=== PATIENT | male | born 1990 | race Caucasian/White ===

== ENCOUNTER 2021-02-27 02:43 | Emergency (ER) | payer SELFPAY ==
--- NOTE | 2021-02-27 03:35 | ER ---
Nurse's Notes [facility] Name: Hector Ramos Age: 30 yrs Sex: Male : 1990 Arrival Date: 02/27/2021 Time: 02:45 Bed 12 [facility] MD: Diagnosis: Scabies Presentation: 02/27 02:59 Chief complaint: Patient states: he has bugs all over him x 2 days. Coronavirus screen: bb At this time, the client does not indicate any symptoms associated with coronavirus-19. Ebola Screen: No symptoms or risks identified at this time. Initial Sepsis Screen: Does the patient meet any 2 criteria? No. Patient's initial sepsis screen is negative. Does the patient have a suspected source of infection? No. Patient's initial sepsis screen is negative. Risk Assessment: Do you want to hurt yourself or someone else? Patient reports no desire to harm self or others. Onset of symptoms was February 25, 2020. 02:59 Method Of Arrival: Ambulatory bb 02:59 Acuity: FRANKI 5 bb Triage Assessment: 03:02 Bite description: bite sustained to legs by "insect", animal information: bb vaccination(s) is not applicable. General: Appears uncomfortable, Behavior is agitated, anxious. Pain: Denies pain. Neuro: Level of Consciousness is awake, alert, obeys commands, Oriented to person, place, situation. Cardiovascular: Capillary refill < 3 seconds Patient's skin is warm and dry. Respiratory: Respiratory effort is even, unlabored. GI: No signs and/or symptoms were reported involving the gastrointestinal system. Derm: Skin is pink, warm \\T\\ dry. Reports insect bites to legs. Musculoskeletal: Circulation, motion, and sensation intact. Historical: - Allergies: 03:02 No Known Allergies; bb - Home Meds: 03:02 None [Active]; bb - PMHx: 03:02 None; bb - PSHx: 03:02 back surgery x 2; bb - Immunization history:: Pfizer x 2. - Social history:: Smoking status: Patient reports the use of cigarette tobacco products, cigars, Patient uses street drugs, opioids , Patient/guardian denies using alcohol. Screenin:43 Abuse screen: Denies threats or abuse. Nutritional screening: No deficits noted. bb Tuberculosis screening: No symptoms or risk factors identified. Fall Risk None identified. Assessment: 03:43 Reassessment: Patient is alert, oriented x 3, equal unlabored respirations, skin bb warm/dry/pink. pt verbalized understanding of and agrees to plan of care discharge instructions given pt ambulated with steady gait to exit. Vital Signs: 02:59 BP 133 / 86; Pulse 94; Resp 16 S; Temp 97.5(TE); Pulse Ox 100% on R/A; Weight 79.38 kg bb (R); Height 6 ft. 1 in. (185.42 cm) (R); 02:59 Body Mass Index 23.09 (79.38 kg, 185.42 cm) bb ED Course: 02:45 Patient arrived in ED. bp1 03:02 Triage completed. bb 03:02 Arm band placed on Patient placed in an exam room. bb 03:05 Genesis Nava RN is Primary Nurse. bb 03:12 Dax Yang MD is Attending Physician. sp3 03:43 Patient has correct armband on for positive identification. bb 03:43 No provider procedures requiring assistance completed. Patient did not have IV access bb during this emergency room visit. Administered Medications: No medications were administered Outcome: 03:34 Discharge ordered by . sp3 03:43 Discharged to home ambulatory. bb 03:43 Condition: stable 03:43 Discharge instructions given to patient, Instructed on discharge instructions, follow up and referral plans. medication usage, Demonstrated understanding of instructions, follow-up care, medications, Prescriptions given X 1. 03:44 Patient left the ED. bb Signatures: Genesis Nava, BRAD RN bb Kelsi Pennington bp1 Dax Yang MD MD sp3
--- NOTE | 2021-02-27 03:35 | EDPHYS ---
Physician Documentation [facility] Name: Hector Ramos Age: 30 yrs Sex: Male : 1990 Arrival Date: 02/27/2021 Time: 02:45 Bed 12 Private MD: ED Physician Dax Yang HPI: 02/27 03:22 This 30 yrs old Male presents to ER via Ambulatory with complaints of Insect Bite. sp3 03:22 30 year old male no past medical history presents with "itching all over". He states sp3 that he may have bedbugs in the hotel he is staying at. He mainly points to the intertriginous areas of his hands and feet along with several areas proximal to that. The areas are warm and have mild bleeding secondary to the tremendous amount of itching he has done. Patient denies fever, trauma, known sick contacts, chest pain, shortness of breath, abdominal pain, nausea, vomiting, diarrhea, or episodes of the same thing.. Historical: - Allergies: 03:02 No Known Allergies; bb - Home Meds: 03:02 None [Active]; bb - PMHx: 03:02 None; bb - PSHx: 03:02 back surgery x 2; bb - Immunization history:: Pfizer x 2. - Social history:: Smoking status: Patient reports the use of cigarette tobacco products, cigars, Patient uses street drugs, opioids , Patient/guardian denies using alcohol. ROS: 03:26 Constitutional: Negative for fever, chills, and weight loss, Eyes: Negative for injury, sp3 pain, redness, and discharge, ENT: Negative for injury, pain, and discharge, Neck: Negative for injury, pain, and swelling, Cardiovascular: Negative for chest pain, palpitations, and edema, Respiratory: Negative for shortness of breath, cough, wheezing, and pleuritic chest pain, Abdomen/GI: Negative for abdominal pain, nausea, vomiting, diarrhea, and constipation, Back: Negative for injury and pain, MS/Extremity: Negative for injury and deformity, Neuro: Negative for headache, weakness, numbness, tingling, and seizure, Psych: Negative for depression, anxiety, suicide ideation, homicidal ideation, and hallucinations, Allergy/Immunology: Negative for hives, rash, and allergies, Endocrine: Negative for neck swelling, polydipsia, polyuria, polyphagia, and marked weight changes, Hematologic/Lymphatic: Negative for swollen nodes, abnormal bleeding, and unusual bruising. 03:26 All other systems are negative. Exam: 03:27 Constitutional: This is a well developed, well nourished patient who is awake, alert, sp3 and in no acute distress. Head/Face: Normocephalic, atraumatic. Eyes: Pupils equal round and reactive to light, extra-ocular motions intact. Lids and lashes normal. Conjunctiva and sclera are non-icteric and not injected. Cornea within normal limits. Periorbital areas with no swelling, redness, or edema. Neck: Trachea midline, no thyromegaly or masses palpated, and no cervical lymphadenopathy. Supple, full range of motion without nuchal rigidity, or vertebral point tenderness. No Meningismus. Chest/axilla: Normal chest wall appearance and motion. Nontender with no deformity. No lesions are appreciated. Cardiovascular: Regular rate and rhythm with a normal S1 and S2. No gallops, murmurs, or rubs. Normal PMI, no JVD. No pulse deficits. Respiratory: Lungs have equal breath sounds bilaterally, clear to auscultation and percussion. No rales, rhonchi or wheezes noted. No increased work of breathing, no retractions or nasal flaring. Abdomen/GI: Soft, non-tender, with normal bowel sounds. No distension or tympany. No guarding or rebound. No evidence of tenderness throughout. MS/ Extremity: Pulses equal, no cyanosis. Neurovascular intact. Full, normal range of motion. Neuro: Awake and alert, GCS 15, oriented to person, place, time, and situation. Cranial nerves II-XII grossly intact. Motor strength 5/5 in all extremities. Sensory grossly intact. Cerebellar exam normal. Normal gait. Psych: Awake, alert, with orientation to person, place and time. Behavior, mood, and affect are within normal limits. 03:27 Skin: Patient has thickened intertriginous areas with areas of excoriation secondary to pruritus and itching. Approximately patient has 7-10 lesions on his forearms and upper legs and thighs that are consistent with insect bites. These are different than the intertriginous areas. . Vital Signs: 02:59 BP 133 / 86; Pulse 94; Resp 16 S; Temp 97.5(TE); Pulse Ox 100% on R/A; Weight 79.38 kg bb (R); Height 6 ft. 1 in. (185.42 cm) (R); 02:59 Body Mass Index 23.09 (79.38 kg, 185.42 cm) bb MDM: 03:28 Data reviewed: vital signs, nurses notes. ED course: Differential includes scabies and sp3 bedbugs. I do suspect possible methamphetamine use as well. Will discharge patient with scabies treatment and instructions to get a new mattress. Follow-up with his routine medical care as needed. . 03:34 Patient medically screened. sp3 Administered Medications: No medications were administered Disposition Summary: 02/27/21 03:34 Discharge Ordered Location: Home sp3 Condition: Stable sp3 Diagnosis - Scabies sp3 Followup: sp3 - With: Private Physician - When: Upon discharge from the Emergency Department - Reason: Continuance of care Discharge Instructions: - Discharge Summary Sheet sp3 - Scabies, Adult sp3 Forms: - Medication Reconciliation Form sp3 - Thank You Letter sp3 - Antibiotic Education sp3 - Prescription Opioid Use sp3 Prescriptions: - permethrin 5 % Topical cream - apply 1 application by TOPICAL route one time leave on for 8-14 hr, then remove sp3 by thorough washing; 2 applicatorful; Refills: 0, Product Selection Permitted Signatures: Genesis Nava RN RN Dax Melendez MD MD sp3 Corrections: (The following items were deleted from the chart) 03:28 03:27 Skin: Patient has thickened intertriginous areas with areas of excoriation sp3 secondary to pruritus and itching. Approximately patient has 7-10 lesions on his forearms and upper legs and thighs that are consistent with insect bites. These are different than the intertriginous areas. Differential includes scabies and bedbugs. I do suspect possible methamphetamine use as well. Will discharge patient with scabies treatment and instructions to get a new mattress. Follow-up with his routine medical care as needed.. sp3
[2021-02-27 03:50] VITALS: BP 133/86; TEMP 97.5; O2SAT 100
== END 2021-02-27 03:44 | disposition home or self-care (01) ==
LOC: ER 02:43
DX: B86 Scabies (principal); Z72.0 Tobacco use
CPT/HCPCS: 99282

== ENCOUNTER 2021-03-02 18:40 | Emergency (ER) | payer SELFPAY ==
[2021-03-03 01:12] LABS: Urine Blood Negative (Negative); Urine Glucose Negative (Negative); Urine Protein 2+ (Negative); Urine pH 8.5 (5.0-7.0)
[2021-03-03 01:24] LABS: Urine Amorphous Sediment 3+ /HPF (NONE SEEN); Urine Bacteria >50 /HPF (NONE SEEN); Urine Mucus 3+ /HPF (NONE SEEN); Urine RBC <5 /HPF (NONE SEEN)
[2021-03-03 01:25] LABS: Calcium Oxalate Crystals- Ur FEW (NONE SEEN); Urine Sperm PRESENT (NONE SEEN)
[2021-03-03 02:01] LABS: Barbiturates NEGATIVE (NEGATIVE); Benzodiazepines NEGATIVE (NEGATIVE); Cocaine POSITIVE (NEGATIVE); METHAMPHETAM POSITIVE (NEGATIVE); Methadone NEGATIVE (NEGATIVE); Opiates POSITIVE (NEGATIVE); Phencyclidine NEGATIVE (NEGATIVE); THC Cannibis NEGATIVE (NEGATIVE)
--- NOTE | 2021-03-03 02:28 | ER ---
Nurse's Notes [facility] Name: Hector Ramos Age: 30 yrs Sex: Male : 1990 Arrival Date: 03/02/2021 Time: 22:52 Bed Treatment Private MD: Diagnosis: UTI/ Urinary tract infection, site not specified;Adverse effect of amphetamines;Adverse effect of cocaine, initial encounter Presentation: 03/02 23:55 Chief complaint: Patient states: "I was dx w/ scabies the other day and now I'm seeing mk bugs in my pee and poop", was given a 'cream that starts with p', hx '2 back surgeries'. Coronavirus screen: Vaccine status: Patient reports being unvaccinated. Ebola Screen: Patient negative for fever greater than or equal to 101.5 degrees Fahrenheit, and additional compatible Ebola Virus Disease symptoms. Initial Sepsis Screen: Does the patient meet any 2 criteria? No. Patient's initial sepsis screen is negative. Does the patient have a suspected source of infection? No. Patient's initial sepsis screen is negative. Risk Assessment: Do you want to hurt yourself or someone else? Patient reports no desire to harm self or others. Onset of symptoms was March 01, 2021. 23:55 Method Of Arrival: Ambulatory 23:55 Acuity: FRANKI 4 Triage Assessment: 23:57 General: Appears in no apparent distress. Behavior is calm. Pain: Denies pain. Historical: - Allergies: 03/03 02:48 No Known Allergies; lp1 Screenin/15 23:57 Abuse screen: Denies threats or abuse. Nutritional screening: No deficits noted. Tuberculosis screening: No symptoms or risk factors identified. Fall Risk None identified. Assessment: 23:44 General: Appears unkempt, Behavior is cooperative. Pain: Denies pain. Neuro: Level of Consciousness is awake, alert, obeys commands, Oriented to person, place, time, situation, Tanning Wheel Operator are equal bilaterally Cardiovascular: Heart tones S1 S2 present Capillary refill < 3 seconds in bilateral fingers toes Patient's skin is warm and dry. Pulses are 2+ in right radial artery, right dorsalis pedis artery, left radial artery and left dorsalis pedis artery Rhythm is sinus rhythm. Respiratory: Airway is patent Trachea midline Respiratory effort is even, unlabored. GI: Abdomen is flat, non-distended. :. Derm: Skin has lesions on scattered lesions/scarring to hands Skin is dry, Skin is pink, warm \\T\\ dry. Musculoskeletal: No deficits noted. 03/03 02:06 General: Appears in no apparent distress. Behavior is cooperative. Neuro: Level of lp1 Consciousness is awake, alert, obeys commands. Respiratory: Respiratory effort is even, unlabored. Derm: Skin is intact, Skin is dry, Skin is normal. Musculoskeletal: No deficits noted. Vital Signs: 03/02 23:55 BP 132 / 92; Pulse 90; Resp 18; Temp 98.3; Pulse Ox 99% ; 23:55 Weight 71 kg; Height 6 ft. 0 in. (182.88 cm); 03/03 01:40 BP 118 / 74; Pulse 79; Resp 18; Pulse Ox 99% on R/A; mk 02:38 BP 121 / 74; Pulse 78; Resp 18; Pulse Ox 98% on R/A; mk 02:47 BP 134 / 81; Pulse 100; Resp 16; Pulse Ox 99% on R/A; lp1 03/02 23:55 Body Mass Index 21.23 (71.00 kg, 182.88 cm) [place] Coma Score: 01:40 Eye Response: spontaneous(4). Verbal Response: oriented(5). Motor Response: obeys commands(6). Total: 15. 02:38 Eye Response: spontaneous(4). Verbal Response: oriented(5). Motor Response: obeys commands(6). Total: 15. ED Course: 03/02 22:52 Patient arrived in ED. wm 23:00 Sangeeta Allen, RN is Primary Nurse. mk 23:57 Triage completed. mk 23:57 Arm band placed on. mk 23:57 Patient has correct armband on for positive identification. Allergy band placed. Bed in low position. Call light in reach. Side rails up X 1. 03/03 00:20 Tesfaye Ribeiro PA is PHCP. cp 00:21 Gabriel Cr MD is Attending Physician. cp 02:48 No provider procedures requiring assistance completed. Patient did not have IV access lp1 during this emergency room visit. Administered Medications: 02:09 CANCELLED (Physician Discretion): Rocephin - (cefTRIAXone) 1 grams IVPB once over 30 cp mins; (mix in 50 mL NS) 02:29 CANCELLED (Physician Discretion; Route changedd): Rocephin - (cefTRIAXone) 1 grams IVPB lp1 once over 30 mins; (mix in 50 mL NS) 02:40 Drug: Rocephin (cefTRIAXone) 1 grams Route: IM; Site: left gluteus; lp1 02:47 Follow up: Response: Medication administered at discharge. lp1 Outcome: 02:27 Discharge ordered by MD. cp 02:48 Discharged to home ambulatory. lp1 02:48 Condition: good 02:48 Discharge instructions given to patient, Instructed on discharge instructions, follow up and referral plans. medication usage, Demonstrated understanding of instructions, follow-up care, medications, Prescriptions given X 1. 02:48 Patient left the ED. lp1 Signatures: Janae Jameson, RN RN lp1 Tesfaye Ribeiro PA PA cp Marsh, Wendy wm Kotarski, Madeline, RN RN mk
--- NOTE | 2021-03-03 02:28 | EDPHYS ---
Physician Documentation [facility] Name: Hector Ramos Age: 30 yrs Sex: Male : 1990 Arrival Date: 03/02/2021 Time: 22:52 Bed Treatment Private MD: ED Physician Gabriel Cr HPI: 03/03 00:33 This 30 yrs old Male presents to ER via Ambulatory with complaints of Bugs in Urine and cp Stool. 00:33 The patient presents with urinary symptoms, "bugs in urine". Onset: The cp symptoms/episode began/occurred at an unknown time. Associated signs and symptoms: Pertinent positives: patient reports noticing "bugs" in stool, Pertinent negatives: abdominal pain, fever, vomiting. 00:33 Patient recently seen in this emergency department on 02/27/[address] Yang with cp complaints for rash and concern for bedbugs. Patient was treated with permethrin cream and reports she has been using it daily since that visit. Patient reports she just washed his clothes and has changed rooms at the hotel he is staying. Patient comes in today complaining of noticing bugs in his urine and stool. Patient denies fever, denies chest pain and abdominal pain. Patient denies penile discharge. Historical: - Allergies: 02:48 No Known Allergies; lp1 ROS: 00:35 Constitutional: Negative for body aches, chills, fever. cp 00:35 Cardiovascular: Negative for chest pain, palpitations. cp 00:35 Abdomen/GI: Negative for abdominal pain, nausea, vomiting, and diarrhea. 00:35 : Negative for penile discharge, testicular pain 00:35 Skin: Positive for rash, diffusely. 00:35 All other systems are negative. Exam: 00:40 Constitutional: The patient appears in no acute distress, alert, awake, non-toxic, well cp developed, well nourished, unkempt. 00:40 Head/Face: Normocephalic, atraumatic. cp 00:40 Cardiovascular: Rate: tachycardic. cp 00:40 ENT: Nose: is normal, Mouth: Lips: moist, Oral mucosa: pink and intact, moist, cp Posterior pharynx: Airway: no evidence of obstruction, patent. 00:40 Respiratory: the patient does not display signs of respiratory distress, Respirations: normal, no use of accessory muscles, no retractions, labored breathing, is not present. 00:40 Skin: rash can be described as erythematous, excoriated, papular, multiple skin ulcerations, and is diffusely located. 00:40 Neuro: Orientation: to person, place \\T\\ time. Mentation: is normal, Motor: moves all fours, strength is normal. Vital Signs: 03/02 23:55 BP 132 / 92; Pulse 90; Resp 18; Temp 98.3; Pulse Ox 99% ; mk 23:55 Weight 71 kg; Height 6 ft. 0 in. (182.88 cm); mk 03/03 01:40 BP 118 / 74; Pulse 79; Resp 18; Pulse Ox 99% on R/A; mk 02:38 BP 121 / 74; Pulse 78; Resp 18; Pulse Ox 98% on R/A; mk 02:47 BP 134 / 81; Pulse 100; Resp 16; Pulse Ox 99% on R/A; lp1 03/02 23:55 Body Mass Index 21.23 (71.00 kg, 182.88 cm) [place] Coma Score: 01:40 Eye Response: spontaneous(4). Verbal Response: oriented(5). Motor Response: obeys mk commands(6). Total: 15. 02:38 Eye Response: spontaneous(4). Verbal Response: oriented(5). Motor Response: obeys mk commands(6). Total: 15. MDM: 00:25 Patient medically screened. cp 02:00 Differential diagnosis: UTI, prostatitis, urethritis, std, illegal drug abuse. cp 02:27 Data reviewed: vital signs, nurses notes, lab test result(s). cp 02:27 Counseling: I had a detailed discussion with the patient and/or guardian regarding: the cp historical points, exam findings, and any diagnostic results supporting the discharge/admit diagnosis, lab results, to return to the emergency department if symptoms worsen or persist or if there are any questions or concerns that arise at home. 03/03 00:26 Order name: Urine Microscopic Only cp 03/03 01:12 Order name: Urine Dipstick-Ancillary; Complete Time: 01:24 EDMS 03/03 01:24 Interpretation: Normal except: UKET Trace; UPH 8.5; UPROT 2+. cp 03/03 01:25 Order name: Urine Microscopic Only; Complete Time: 01:50 EDMS 03/03 01:50 Interpretation: Normal except: UWBC 5-10; UBACT >50; MUCUS 3+; AMORPH 3+; SPERM PRESENT.cp 03/03 01:26 Order name: UDS cp 03/03 01:26 Order name: LAB Add On cp 03/03 02:01 Order name: Urine Drug Screen; Complete Time: 02:08 EDMS 03/03 02:08 Interpretation: Normal except: SHANE POSITIVE; METHAMPHETAMINE POSITIVE; OPI POSITIVE. cp 03/03 00:26 Order name: Urine Dipstick-Ancillary (obtain specimen); Complete Time: 01:08 cp Administered Medications: 02:09 CANCELLED (Physician Discretion): Rocephin - (cefTRIAXone) 1 grams IVPB once over 30 cp mins; (mix in 50 mL NS) 02:29 CANCELLED (Physician Discretion; Route changedd): Rocephin - (cefTRIAXone) 1 grams IVPB lp1 once over 30 mins; (mix in 50 mL NS) 02:40 Drug: Rocephin (cefTRIAXone) 1 grams Route: IM; Site: left gluteus; lp1 02:47 Follow up: Response: Medication administered at discharge. lp1 Disposition: 02:30 Chart complete. cp 03:07 Co-signature as Attending Physician, Gabriel Cr MD. [email or web address] Disposition Summary: 03/03/21 02:27 Discharge Ordered Location: Home cp Problem: new cp Symptoms: are unchanged cp Condition: Stable cp Diagnosis - UTI/ Urinary tract infection, site not specified cp - Adverse effect of amphetamines cp - Adverse effect of cocaine, initial encounter cp Followup: cp - With: Private Physician - When: 2 - 3 days - Reason: Worsening of condition Discharge Instructions: - Discharge Summary Sheet cp - Cocaine Use Disorder cp - Urinary Tract Infection, Adult cp - Methamphetamines Use Disorder cp Forms: - Medication Reconciliation Form cp - Thank You Letter cp - Antibiotic Education cp - Prescription Opioid Use cp Prescriptions: - Doxycycline Hyclate 100 mg Oral Tablet - take 1 tablet by ORAL route every 12 hours; 20 tablet; Refills: 0, Product cp Selection Permitted Signatures: Dispatcher [facility] Hamm RN RN lp1 Tesfaye Ribeiro PA PA cp Holmes, Maurice, MD MD 7 Corrections: (The following items were deleted from the chart) 02:09 02:09 Rocephin - (cefTRIAXone) 1 grams IVPB once over 30 mins; (mix in 50 mL NS) cp ordered. cp 02:29 02:13 Rocephin - (cefTRIAXone) 1 grams IVPB once over 30 mins; (mix in 50 mL NS) lp1 ordered. cp
[2021-03-03] MEDS ORDERED: LIDOCAINE 1% MPF 2 ML AMPULE ONE (02:36)
[2021-03-03] MEDS ORDERED: CEFTRIAXONE 1000 MG/VIAL ONE (02:36)
[2021-03-03 03:26] VITALS: TEMP 98.3
[2021-03-03 03:30] VITALS: BP 134/81; O2SAT 99
== END 2021-03-03 02:48 | disposition home or self-care (01) ==
LOC: ER 18:40
DX: N39.0 Urinary tract infection, site not specified (principal); T40.5X5A Adverse effect of cocaine, initial encounter
CPT/HCPCS: 80307; 81003; 81015; 87086; 87088; 96372; 99284